=== PATIENT | female | born 1940 | race Caucasian/White ===

== ENCOUNTER 2017-09-09 08:13 | Emergency (ER) | payer OTHER ==
[~2017-09-09] VITALS: Ht 162.6 cm; Wt 75.0 kg
[2017-09-09] MEDS ORDERED: ZETI10TA30 PO (08:38)
[2017-09-09] MEDS ORDERED: ASPI81CH PO (08:38)
[2017-09-09] MEDS ORDERED: CALC600T57 PO (08:38)
[2017-09-09] MEDS ORDERED: NEXI40CA PO (08:38)
[2017-09-09] MEDS ORDERED: LISI10TA2 PO (08:38)
[2017-09-09] MEDS ORDERED: FENO150C PO (08:38)
[2017-09-09 10:00] LABS: BASO % 0.3 % (0.0-1.0); EOS # 0.1 10^3/uL (0.0-0.50); EOS % 0.4 % (0.0-3.0); IMMATURE GRANULOCYTE % 0.4 % (0-0); LYMPH # 1.3 10^3/uL (1.5-4.5); LYMPH % 7.9 % (24.0-44.0); MEAN CORPUSCULAR HEMOGLOBIN 31.2 pg (27.0-33.0); MEAN CORPUSCULAR HGB CONC 34.3 g/dl (32.0-36.5); MONO # 1.4 10^3/uL (0.0-0.8); NEUTROPHILS # 13.1 10^3/uL (1.8-7.7); PLATELET COUNT, AUTOMATED 237 10^3/uL (150-450); RED CELL DISTRIBUTION WIDTH 12.9 % (11.5-14.5); WHITE BLOOD COUNT 15.9 10^3/uL (4.0-10.0)
--- NOTE | 2017-09-09 10:00 | REP ---
CHEST, TWO VIEWS: No comparison. There is no evidence of acute infiltrate. No pleural effusion is seen. The heart is normal in size. The mediastinal silhouette is unremarkable. The visualized osseous structures are intact. There is calcification of the thoracic aorta. There are mild degenerative changes of the spine. IMPRESSION: No acute pulmonary disease. Signed by Nuno Garcia MD 09/09/2017 04:41 P
[2017-09-09 10:33] LABS: CALCIUM LEVEL 9.5 MG/DL (8.8-10.2); CREATININE FOR GFR 1.1 MG/DL (0.55-1.02); GLOMERULAR FILTRATION RATE 51.5 (>39); POTASSIUM SERUM 3.9 MEQ/L (3.5-5.1)
[2017-09-09 12:57] LABS: RENAL EPITHELIAL CELLS 1 /HPF
[2017-09-09] MEDS ORDERED: LEVO500T3 PO (13:12)
[2017-09-09 13:36] VITALS: BP 150/70
[2017-09-09] MEDS ORDERED: ACETAMINOPHEN TAB 650MG DOSE (2X325MG) PO ONE (13:45)
[2017-09-09] MEDS ORDERED: ACETAMINOPHEN 325 MG TAB PO ONE (14:00)
[2017-09-10] MEDS ORDERED: TESS100C PO (10:18)
== END 2017-09-09 14:01 | disposition home or self-care (01) ==
LOC: M ED 08:13
DX: J06.9 Acute upper respiratory infection, unspecified (principal); N39.0 Urinary tract infection, site not specified; I10 Essential (primary) hypertension; Z79.82 Long term (current) use of aspirin; Z79.899 Other long term (current) drug therapy